=== PATIENT | male | born 2000 | race African-American/Black ===

== ENCOUNTER 2021-06-03 01:03 | Emergency (ER) | payer OTHER ==
[~2021-06-03] VITALS: Ht 167.6 cm; Wt 80.9 kg
[2021-06-03] MEDS ORDERED: CYCLOBENZAPRINE HCL 10 MG TABLET PO ONE (01:15)
[2021-06-03] MEDS ORDERED: LIDOCAINE 5% TRANSDERMAL PATCH TD ONE (01:15)
[2021-06-03] MEDS ORDERED: KETOROLAC TROMETHAMINE 30 MG/ML VIAL IM ONE (01:15)
[2021-06-03] MEDS ORDERED: ACETAMINOPHEN 500 MG TABLET PO ONE (01:15)
[2021-06-03] MEDS ORDERED: IBUP-2070 PO (01:35)
[2021-06-03] MEDS ORDERED: DIPH50CA35 PO (01:35)
[2021-06-03 02:39] VITALS: BP 140/89
== END 2021-06-03 02:53 | disposition home or self-care (01) ==
LOC: EMS 01:05
DX: M54.5 Low back pain (principal)
CPT/HCPCS: 72100; 72220; 96372; 99284; J1885